=== PATIENT | male | born 1955 | race Two or more races ===

== ENCOUNTER 2020-12-03 17:13 | Inpatient (IN) | payer MEDICARE, OTHER ==
[~2020-12-03] VITALS: Ht 170.2 cm; Wt 68.0 kg
[2020-12-03 22:50] VITALS: BP 147/48
[2020-12-03] MEDS ORDERED: HEPARIN IV SCH (23:30)
[2020-12-03] MEDS ORDERED: SODIUM CHLORIDE 0.9% IV SCH (23:30)
[2020-12-03] MEDS ORDERED: ACETAMINOPHEN 325 MG TAB PO PRN (23:45)
[2020-12-03] MEDS ORDERED: CLOPIDOGREL BISULFATE 75 MG TAB PO ONE ×2 (23:45)
[2020-12-04] VITALS (12 sets, daily range): BP systolic 122–180; BP diastolic 48–95
[2020-12-04 00:39] LABS: BASOPHILS % 0.7 % (0.0-1.0); EOSINOPHILS # (AUTO) 0.2 (0.0-0.4); EOSINOPHILS % 3.1 % (0.0-6.0); HEMATOCRIT 29.8 % (38.2-49.6); HEMOGLOBIN 9.9 g/dL (14.0-18.0); LYMPHOCYTES # (AUTO) 1.6 (1.0-3.2); LYMPHOCYTES % 28.2 % (18.0-39.1); MEAN CORPUSCULAR HEMOGLOBIN 29.3 pg (28-32); MEAN CORPUSCULAR HGB CONC 33.2 g/dL (31-35); MEAN CORPUSCULAR VOLUME 88.2 fL (81-99); MONOCYTES # (AUTO) 0.5 (0.2-0.8); MONOCYTES % 9.7 % (4.4-11.3); NEUTROPHILS # (AUTO) 3.2 (2.1-6.9); NEUTROPHILS % 57.8 % (38.7-80.0); PLATELET COUNT 164 x10e3/uL (140-360); RED BLOOD COUNT 3.38 x10e6/uL (4.3-5.7); RED CELL DISTRIBUTION WIDTH 13.2 % (11.7-14.4)
[2020-12-04] MEDS ORDERED: TYLENOL325 MG PO (01:04)
[2020-12-04] MEDS ORDERED: COREG12.5 MG PO (01:04)
[2020-12-04] MEDS ORDERED: LIPITOR20 MG PO (01:04)
[2020-12-04] MEDS ORDERED: NEURONTIN300 MG PO (01:04)
[2020-12-04] MEDS ORDERED: AMLODIPINE BESY10 MG PO (01:04)
[2020-12-04] MEDS ORDERED: ISOSORBIDE MONO20 MG PO (01:04)
[2020-12-04 01:06] LABS: ALBUMIN 2.5 g/dL (3.5-5.0); ALBUMIN/GLOBULIN RATIO 0.7 (0.8-2.0); ANION GAP 14.2 mmol/L (8-16); CALCIUM 7.8 mg/dL (8.4-10.2); CREATININE, SERUM 3.78 mg/dL (0.72-1.25); POTASSIUM 5.2 mmol/L (3.5-5.1)
[2020-12-04 01:15] LABS: CREATINE KINASE MB 12.1 ng/mL (0-5.0)
[2020-12-04 01:20] LABS: THYROID STIMULATING HORMONE 1.461 uIU/mL (0.350-4.940)
[2020-12-04] MEDS ORDERED: FERROUS SULFAT325 MG PO (02:56)
[2020-12-04] MEDS ORDERED: FUROSEMIDE80 MG PO (02:56)
[2020-12-04] MEDS ORDERED: POLYETHYLENE GL17 GM PO (02:56)
[2020-12-04] MEDS ORDERED: SERTRALINE HCL50 MG PO (02:56)
[2020-12-04] MEDS ORDERED: SODIUM BICARBO650 MG PO (02:56)
[2020-12-04] MEDS ORDERED: CLOPIDOGREL75 MG PO (02:56)
[2020-12-04] MEDS ORDERED: ASPIRIN 81 MG CHEW TAB PO SCH (09:00)
[2020-12-04] MEDS ORDERED: GABAPENTIN 300 MG CAP PO SCH (09:00)
[2020-12-04] MEDS ORDERED: ISOSORBIDE MONONITRATE 30 MG TAB CR PO SCH ×2 (09:00)
[2020-12-04] MEDS ORDERED: CLOPIDOGREL BISULFATE 75 MG TAB PO SCH (09:00)
[2020-12-04] MEDS ORDERED: CARVEDILOL 12.5 MG TAB PO SCH ×2 (09:00)
[2020-12-04] MEDS ORDERED: IOPAMIDOL 370 MG/ML 200 ML INFUS..BTL INJ ONE (09:41)
[2020-12-04] MEDS ORDERED: HEPARIN SOD/SOD CHLORIDE 2,000 ML ONE (09:41)
[2020-12-04] MEDS ORDERED: HEPARIN SOD (PORCINE) 1000 UNIT/ML 30ML ONE (09:41)
[2020-12-04] MEDS ORDERED: SODIUM CHLORIDE 0.9% 1000ML 1,000 ML ONE (09:41)
[2020-12-04] MEDS ORDERED: MIDAZOLAM HCL 2 MG/2 ML VIAL ONE (09:41)
[2020-12-04] MEDS ORDERED: LIDOCAINE HCL 2% LOCAL 20 ML VIAL ONE (09:41)
[2020-12-04] MEDS ORDERED: NITROGLYCERIN/D5W 200 MCG/ML 0 ML ONE (09:41)
[2020-12-04] MEDS ORDERED: FENTANYL CITRATE/PF 100MCG/2 ML INJ ONE (09:41)
[2020-12-04] MEDS ORDERED: ACETAMINOPHEN 325 MG TAB PO PRN (10:45)
[2020-12-04] MEDS ORDERED: HYDROCODONE/APAP 5MG-325MG TAB PO PRN (10:45)
[2020-12-04] MEDS ORDERED: METOCLOPRAMIDE HCL 10 MG/2ML VIAL ONE (12:44)
[2020-12-04] MEDS ORDERED: ALBUMIN 25% 12.5GM 0.25 GM/ML BTL IV PRN (13:00)
[2020-12-04] MEDS ORDERED: SODIUM CHLORIDE 0.9% 1000ML 2,000 ML IV PRN (13:00)
[2020-12-04] MEDS ORDERED: HEPARIN SOD (PORCINE) 1000 UNIT/ML SDV IV PRN (13:00)
[2020-12-04] MEDS ORDERED: SODIUM CHLORIDE 0.9% 250ML 500 ML IV PRN (13:00)
[2020-12-04] MEDS ORDERED: ZOLPIDEM TARTRATE 5 MG TAB PO ONE (14:35)
[2020-12-04] MEDS ORDERED: ATORVASTATIN 40 MG TAB PO SCH (21:00)
[2020-12-04] MEDS ORDERED: AMLODIPINE BESYLATE 10 MG TAB PO SCH (21:00)
== END 2020-12-04 16:32 | disposition short-term general hospital (02) | DRG 280 ==
LOC: MED/SURG 17:13 → UNDOADMIN 17:13 → MED/SURG 17:17
PROVIDERS: ADMIT Internal Medicine; ATTEND Internal Medicine
PROC: 4A023N7 Measurement of Cardiac Sampling and Pressure, Left Heart, Percutaneous Approach (ICD-10-PCS; principal; 2020-12-03)
PROC: B2111ZZ Fluoroscopy of Multiple Coronary Arteries using Low Osmolar Contrast (ICD-10-PCS; 2020-12-03)
PROC: B2151ZZ Fluoroscopy of Left Heart using Low Osmolar Contrast (ICD-10-PCS; 2020-12-03)
PROC: B2181ZZ Fluoroscopy of Left Internal Mammary Bypass Graft using Low Osmolar Contrast (ICD-10-PCS; 2020-12-03)
PROC: B31C1ZZ Fluoroscopy of Bilateral External Carotid Arteries using Low Osmolar Contrast (ICD-10-PCS; 2020-12-03)
PROC: B3121ZZ Fluoroscopy of Left Subclavian Artery using Low Osmolar Contrast (ICD-10-PCS; 2020-12-03)
PROC: B3181ZZ Fluoroscopy of Bilateral Internal Carotid Arteries using Low Osmolar Contrast (ICD-10-PCS; 2020-12-03)
DX: I21.4 Non-ST elevation (NSTEMI) myocardial infarction (principal); N18.6 End stage renal disease; I69.354 Hemiplegia and hemiparesis following cerebral infarction affecting left non-dominant side; I13.2 Hypertensive heart and chronic kidney disease with heart failure and with stage 5 chronic kidney disease, or end stage renal disease; I25.119 Atherosclerotic heart disease of native coronary artery with unspecified angina pectoris; Z99.2 Dependence on renal dialysis; I34.0 Nonrheumatic mitral (valve) insufficiency; E78.5 Hyperlipidemia, unspecified; I65.23 Occlusion and stenosis of bilateral carotid arteries; E11.51 Type 2 diabetes mellitus with diabetic peripheral angiopathy without gangrene; I25.2 Old myocardial infarction; Z74.09 Other reduced mobility; Z20.822 Contact with and (suspected) exposure to COVID-19; D63.1 Anemia in chronic kidney disease; N25.0 Renal osteodystrophy; E87.5 Hyperkalemia; I50.9 Heart failure, unspecified
CPT/HCPCS: 36225; 36415; 70450; 80053; 80061; 82550; 82553; 82948; 84443; 84484; 85025; 85730; 93306; 93458; 99152; 99153; C1766; C1769; C1887; J1644; J2001; J2250; J2765; J3010; J7030; J7040; Q9967